=== PATIENT | female | born 1950 | race Caucasian/White ===

== ENCOUNTER → 2016-10-16 | Outpatient (CLI) | payer MEDICARE ==
[2016-10-16 09:00] LABS: HEMOGLOBIN 14.6 gm/dl (12.3-15.3); RED BLOOD COUNT 4.32 M/UL (4.00-5.10); WHITE BLOOD COUNT 7.1 K/UL (4.5-11.0)
[2016-10-16 09:22] LABS: BUN/CREATININE RATIO 15 (0-10)
== END ==
LOC: LAB 08:33
PROVIDERS: Family Medicine
DX: E55.9 Vitamin D deficiency, unspecified (principal); E78.5 Hyperlipidemia, unspecified
CPT/HCPCS: 36415; 80053; 80061; 85025

== ENCOUNTER → 2016-12-21 | Outpatient (CLI) | payer MEDICARE ==
[2016-12-21 11:55] LABS: HEMOGLOBIN 13.8 gm/dl (12.3-15.3); RED BLOOD COUNT 4.01 M/UL (4.00-5.10); WHITE BLOOD COUNT 6.6 K/UL (4.5-11.0)
== END ==
LOC: LAB 11:11
PROVIDERS: Family Medicine
DX: D75.89 Other specified diseases of blood and blood-forming organs (principal); R53.83 Other fatigue; F32.9 Major depressive disorder, single episode, unspecified; I10 Essential (primary) hypertension
CPT/HCPCS: 36415; 84443; 85025

== ENCOUNTER → 2020-08-31 | Outpatient (CLI) | payer MEDICARE, OTHER ==
[~2020-08-31] VITALS: Ht 157.5 cm; Wt 54.0 kg
[~2020-08-31] MED LIST: ALDACTONE25 MG PO; ANORO ELLIPTA1 EACH INH; ASPIR 8181 MG PO; ASPIRIN CHEWABL81 MG PO; ATORVASTATIN CA80 MG PO; BUSPAR 10MG10 MG PO; BUSPIRONE HCL15 MG PO; COLACE 100MG C100 MG PO; COREG 3.125M3.125 MG PO; CRESTOR40 MG PO; CYMBALTA60 MG PO; DOCUSATE SODIU100 MG PO; ECOTRIN81 MG PO; FUROSEMIDE40 MG PO; GAVILAX17 GM PO; ISORDIL TAB 2020 MG PO; K-TAB ER20 MEQ PO; LASIX40 MG PO; LIPITOR TAB 2020 MG PO; LIPITOR40 MG PO; LISINOPRIL2.5 MG PO; LISINOPRIL5 MG PO; METHOCARBAMOL500 MG PO; MIDODRINE HCL2.5 MG PO; MIRALAX17 GM PO; NEURONTIN 400400 MG PO; NEURONTIN600 MG PO; NITROSTAT0.4 MG SL; ONDANSETRON HCL8 MG PO; PANTOPRAZOLE SO40 MG PO; PLAVIX 75 MG TA75 MG PO; POTASSIUM CHLO20 ME1 PO; POTASSIUM CHLO20 ME2 PO; PRINIVIL5 MG PO; PROLIA INJ60 MG/1 ML SC; PROTONIX40 MG PO; RANEXA1000 MG PO; RANEXA500 MG PO; RANITIDINE HCL150 MG PO; REGLAN10 MG PO; SPIRIVA HANDIH18 MCG INH; SPIRIVA18 MCG INH; TIZANIDINE HCL2 MG PO; ULTRAM50 MG PO; VENTOLIN HFA 66.7 GM INH; VIT B12 PO; VIT D3 PO; VITAMIN B-121000 MCG PO; VITAMIN B-122500 MCG SL; VITAMIN D32000 UNI1 PO; VITAMIN D32000 UNIT PO; ZANAFLEX4 MG PO; ZANTAC 150 MG150 MG PO; ZANTAC150 MG PO; ZOFRAN ODT8 MG PO; ZOFRAN4 MG PO; ZYRTEC10 MG PO
== END ==
LOC: OPSV 08-25 12:00
DX: M81.0 Age-related osteoporosis without current pathological fracture (principal); Z12.31 Encounter for screening mammogram for malignant neoplasm of breast; Z78.0 Asymptomatic menopausal state
CPT/HCPCS: 77063; 77067; 96372

== ENCOUNTER → 2020-11-08 | Outpatient (CLI) | payer MEDICARE, OTHER ==
[2020-11-09 11:15] LABS: CREATININE, URINE 46.6 mg/dL (Not Estab.)
== END ==
LOC: LAB 12:03
PROVIDERS: Family Medicine
DX: E78.5 Hyperlipidemia, unspecified (principal); I12.9 Hypertensive chronic kidney disease with stage 1 through stage 4 chronic kidney disease, or unspecified chronic kidney disease; N18.30 Chronic kidney disease, stage 3 unspecified; E55.9 Vitamin D deficiency, unspecified; E53.8 Deficiency of other specified B group vitamins
CPT/HCPCS: 36415; 80053; 80061; 82043; 82570; 82607

== ENCOUNTER → 2020-11-09 | Outpatient (CLI) | payer MEDICARE, OTHER | LOC: EXRD 09:12 | DX: Z13.6 Encounter for screening for cardiovascular disorders (principal); M81.0 Age-related osteoporosis without current pathological fracture | CPT/HCPCS: 76706; 77080 ==

== ENCOUNTER → 2020-11-11 | Outpatient (CLI) | payer MEDICARE, OTHER | LOC: RAD 12:42 | DX: I50.22 Chronic systolic (congestive) heart failure (principal) | CPT/HCPCS: 71046 ==

== ENCOUNTER → 2020-11-18 | Outpatient (CLI) | payer MEDICARE, OTHER | LOC: LAB 08:44 | PROVIDERS: Family Medicine | DX: I50.22 Chronic systolic (congestive) heart failure (principal) | CPT/HCPCS: 36415; 80048; 83880 ==

== ENCOUNTER → 2021-01-11 | Outpatient (CLI) | payer MEDICARE, OTHER | LOC: HEART 5 08:34 | DX: I20.8 Other forms of angina pectoris (principal); I21.9 Acute myocardial infarction, unspecified | CPT/HCPCS: 78452; A9502; J0280; J2785 ==

== ENCOUNTER → 2021-01-17 | Outpatient (CLI) | payer MEDICARE, OTHER | LOC: LAB 11:48 | PROVIDERS: Family Medicine | DX: I50.22 Chronic systolic (congestive) heart failure (principal); N18.30 Chronic kidney disease, stage 3 unspecified | CPT/HCPCS: 36415; 80048; 83735 ==

== ENCOUNTER → 2021-01-20 | Outpatient (CLI) | payer MEDICARE, OTHER | LOC: ECHO 13:00 | DX: I20.8 Other forms of angina pectoris (principal) | CPT/HCPCS: ECHO; 93306 ==

== ENCOUNTER → 2021-02-04 | Outpatient (CLI) | payer MEDICARE ==
[2021-02-04 10:27] LABS: HEMOGLOBIN 13.2 gm/dl (12.3-15.3); RED BLOOD COUNT 3.83 M/UL (4.00-5.10); WHITE BLOOD COUNT 10.3 K/UL (4.5-11.0)
== END ==
LOC: LAB 08:51
PROVIDERS: Internal Medicine Cardiovascular Disease
DX: I25.119 Atherosclerotic heart disease of native coronary artery with unspecified angina pectoris (principal); I11.0 Hypertensive heart disease with heart failure; I50.22 Chronic systolic (congestive) heart failure; R06.02 Shortness of breath; R53.1 Weakness
CPT/HCPCS: 36415; 71046; 80048; 85025

== ENCOUNTER 2021-02-08 08:13 | Outpatient (CLI) | payer MEDICARE ==
[~2021-02-08] VITALS: Ht 157.5 cm; Wt 57.6 kg
[~2021-02-08 08:13] MED LIST changes: -ALDACTONE25 MG PO; -ANORO ELLIPTA1 EACH INH; -CRESTOR40 MG PO; -DOCUSATE SODIU100 MG PO; -LISINOPRIL2.5 MG PO; -METHOCARBAMOL500 MG PO; -MIDODRINE HCL2.5 MG PO; -PROLIA INJ60 MG/1 ML SC; -ZYRTEC10 MG PO
[2021-02-08] MEDS ORDERED: LISINOPRIL2.5 MG PO (09:37)
[2021-02-08] MEDS ORDERED: ANORO ELLIPTA1 EACH INH (10:02)
[2021-02-08] MEDS ORDERED: MIDODRINE HCL2.5 MG PO (10:04)
[2021-02-08] MEDS ORDERED: METHOCARBAMOL500 MG PO (10:04)
[2021-02-08] MEDS ORDERED: ALDACTONE25 MG PO (10:05)
[2021-02-08] MEDS ORDERED: PROLIA INJ60 MG/1 ML SC (10:05)
[2021-02-08] MEDS ORDERED: CRESTOR40 MG PO (10:05)
[2021-02-08] MEDS ORDERED: ZYRTEC10 MG PO (10:06)
[2021-02-08 19:49] LABS: HEMOGLOBIN 12.7 gm/dl (12.3-15.3); RED BLOOD COUNT 3.6 M/UL (4.00-5.10); WHITE BLOOD COUNT 10.1 K/UL (4.5-11.0)
[2021-02-09 02:43] LABS: HEMOGLOBIN 13.3 gm/dl (12.3-15.3); RED BLOOD COUNT 3.92 M/UL (4.00-5.10)
[2021-02-09] MEDS ORDERED: DOCUSATE SODIU100 MG PO (10:51)
== END 2021-02-09 11:36 | disposition home or self-care (01) ==
LOC: CATH 08:13 → PROG CARE 15:03 → CATH 02-09 11:36
PROVIDERS: Internal Medicine Cardiovascular Disease
DX: I25.118 Atherosclerotic heart disease of native coronary artery with other forms of angina pectoris (principal); I11.0 Hypertensive heart disease with heart failure; I50.9 Heart failure, unspecified; E78.5 Hyperlipidemia, unspecified; I25.2 Old myocardial infarction; I73.9 Peripheral vascular disease, unspecified; J44.9 Chronic obstructive pulmonary disease, unspecified; K21.9 Gastro-esophageal reflux disease without esophagitis; Z95.5 Presence of coronary angioplasty implant and graft; Z88.5 Allergy status to narcotic agent; Z88.8 Allergy status to other drugs, medicaments and biological substances; Z79.82 Long term (current) use of aspirin; Z79.02 Long term (current) use of antithrombotics/antiplatelets; Z79.899 Other long term (current) drug therapy
CPT/HCPCS: 36415; 80048; 85027; 85347; 93005; 94640; 94664; 94760; 99152; 99153; C1725; C1769; C1874; C1887; C9600; J0461; J1170; J1644; J2250; J2370; J2405; J3246; J7030; J7040; Q9965

== ENCOUNTER → 2021-02-16 | Outpatient (CLI) | payer MEDICARE ==
[~2021-02-16] MED LIST changes: +ALDACTONE25 MG PO; +ANORO ELLIPTA1 EACH INH; +CRESTOR40 MG PO; +DOCUSATE SODIU100 MG PO; +LISINOPRIL2.5 MG PO; +METHOCARBAMOL500 MG PO; +MIDODRINE HCL2.5 MG PO; +PROLIA INJ60 MG/1 ML SC; +ZYRTEC10 MG PO
== END ==
LOC: LAB 09:04
PROVIDERS: Family Medicine
DX: E53.8 Deficiency of other specified B group vitamins (principal); E55.9 Vitamin D deficiency, unspecified; E83.42 Hypomagnesemia; I12.9 Hypertensive chronic kidney disease with stage 1 through stage 4 chronic kidney disease, or unspecified chronic kidney disease; N18.30 Chronic kidney disease, stage 3 unspecified; E78.5 Hyperlipidemia, unspecified
CPT/HCPCS: 36415; 80053; 82570; 82607; 83735; 84156

== ENCOUNTER → 2021-02-28 | Outpatient (CLI) | payer MEDICARE ==
[~2021-02-28] VITALS: Ht 157.5 cm; Wt 59.0 kg
== END ==
LOC: OPSV 12:00
DX: M81.0 Age-related osteoporosis without current pathological fracture (principal)
CPT/HCPCS: 96372

== ENCOUNTER → 2021-03-09 | Outpatient (CLI) | payer MEDICARE | LOC: LAB 12:15 | PROVIDERS: Internal Medicine Nephrology | DX: I25.10 Atherosclerotic heart disease of native coronary artery without angina pectoris (principal) | CPT/HCPCS: 36415; 80048 ==

== ENCOUNTER → 2021-04-01 | Outpatient (CLI) | payer MEDICARE ==
[2021-04-02 07:12] LABS: VITAMIN D, 25-HYDROXY 47.6 ng/mL (30.0-100.0)
[2021-04-05 01:07] LABS: TANDEM-R OSTASE 5.4 ug/L (.)
== END ==
LOC: LAB 08:14
PROVIDERS: Internal Medicine
DX: M81.0 Age-related osteoporosis without current pathological fracture (principal); D64.9 Anemia, unspecified
CPT/HCPCS: 36415; 82728; 83735; 83937; 83970; 84080; 84100

== ENCOUNTER → 2021-04-20 | Outpatient (CLI) | payer MEDICARE | LOC: EXRD 10:59 | DX: N17.9 Acute kidney failure, unspecified (principal); N28.1 Cyst of kidney, acquired | CPT/HCPCS: 76775 ==

== ENCOUNTER → 2021-04-21 | Outpatient (CLI) | payer MEDICARE ==
[2021-04-21 10:27] LABS: HEMOGLOBIN 14.3 gm/dl (12.3-15.3); RED BLOOD COUNT 3.96 M/UL (4.00-5.10); WHITE BLOOD COUNT 7.2 K/UL (4.5-11.0)
== END ==
LOC: LAB 08:22
PROVIDERS: Internal Medicine Nephrology
DX: N17.9 Acute kidney failure, unspecified (principal); I95.9 Hypotension, unspecified; E78.5 Hyperlipidemia, unspecified; E55.9 Vitamin D deficiency, unspecified
CPT/HCPCS: 36415; 80053; 82533; 82550; 82570; 83970; 84100; 84156; 85027; 89050

== ENCOUNTER 2021-05-18 11:05 | Emergency (ER) | payer MEDICARE ==
[2021-05-18 12:26] LABS: HEMOGLOBIN 15.3 gm/dl (12.3-15.3); RED BLOOD COUNT 4.31 M/UL (4.00-5.10); WHITE BLOOD COUNT 7.9 K/UL (4.5-11.0)
[2021-05-18] MEDS ORDERED: ONDANSETRON ODT4 MG SL (15:25)
[2021-05-18] MEDS ORDERED: AUGMENTIN 875-1 EACH PO (15:25)
[2021-05-18] MEDS ORDERED: METRONIDAZOLE500 MG PO (15:25)
== END 2021-05-18 15:35 | disposition home or self-care (01) ==
LOC: ER1 11:05
PROVIDERS: Physician Assistant
DX: K52.9 Noninfective gastroenteritis and colitis, unspecified (principal); N39.0 Urinary tract infection, site not specified; R07.89 Other chest pain; I25.2 Old myocardial infarction; K21.9 Gastro-esophageal reflux disease without esophagitis; J44.9 Chronic obstructive pulmonary disease, unspecified; Z88.8 Allergy status to other drugs, medicaments and biological substances; Z90.89 Acquired absence of other organs
CPT/HCPCS: 80053; 81001; 82550; 82553; 83690; 83874; 84484; 85025; 87077; 87086; 87186; 93005; 96374; 99284; J2550; J7030

== ENCOUNTER → 2021-06-21 | Outpatient (CLI) | payer MEDICARE ==
[~2021-06-21] MED LIST changes: +AUGMENTIN 875-1 EACH PO; +METRONIDAZOLE500 MG PO; +ONDANSETRON ODT4 MG SL
== END ==
LOC: LAB 08:03
PROVIDERS: Physician Assistant
DX: I25.10 Atherosclerotic heart disease of native coronary artery without angina pectoris (principal); I11.0 Hypertensive heart disease with heart failure; I50.22 Chronic systolic (congestive) heart failure; I48.91 Unspecified atrial fibrillation; I47.2 Ventricular tachycardia; I25.5 Ischemic cardiomyopathy; E78.5 Hyperlipidemia, unspecified; R00.2 Palpitations
CPT/HCPCS: 36415; 80048; 80162

== ENCOUNTER → 2021-07-08 | Outpatient (CLI) | payer MEDICARE ==
[2021-07-08 12:39] LABS: HEMOGLOBIN 15.5 gm/dl (12.3-15.3); RED BLOOD COUNT 4.45 M/UL (4.00-5.10); WHITE BLOOD COUNT 9.4 K/UL (4.5-11.0)
== END ==
LOC: LAB 11:33
PROVIDERS: Internal Medicine Cardiovascular Disease
DX: Z45.02 Encounter for adjustment and management of automatic implantable cardiac defibrillator (principal); I25.5 Ischemic cardiomyopathy; I47.2 Ventricular tachycardia
CPT/HCPCS: 36415; 80048; 85025

== ENCOUNTER → 2021-07-12 | Outpatient (CLI) | payer MEDICARE ==
[~2021-07-12] MED LIST changes: +CLINDAMYCIN HC300 MG PO; +ELIQUIS5 MG PO; +HYDROCODON-ACE1 EAC4 PO; +LANOXIN125 MCG PO; +LEVOFLOXACIN500 MG PO; +PAIN RELIEF500 M1 PO
== END ==
LOC: CATH 07:00
DX: Z45.02 Encounter for adjustment and management of automatic implantable cardiac defibrillator (principal); I25.5 Ischemic cardiomyopathy; I50.22 Chronic systolic (congestive) heart failure; I25.10 Atherosclerotic heart disease of native coronary artery without angina pectoris; I44.7 Left bundle-branch block, unspecified; I48.91 Unspecified atrial fibrillation; Z20.822 Contact with and (suspected) exposure to COVID-19; Z95.810 Presence of automatic (implantable) cardiac defibrillator; Z87.891 Personal history of nicotine dependence
CPT/HCPCS: C1882; J2250; J3010; J3370; J7040; J7050

== ENCOUNTER → 2021-08-31 | Outpatient (CLI) | payer MEDICARE ==
[~2021-08-31] VITALS: Ht 157.5 cm; Wt 59.0 kg
[2021-09-01 07:12] LABS: COMPLEMENT C3, SERUM 126 mg/dL (82-167); COMPLEMENT C4, SERUM 27 mg/dL (12-38)
[2021-09-01 14:15] LABS: ANTI-DSDNA ANTIBODIES <1 IU/mL (0-9)
[2021-09-02 12:15] LABS: ANTIHISTONE ANTIBODIES 0.3 Units (0.0-0.9)
== END ==
LOC: OPSV 11:54
PROVIDERS: Internal Medicine Nephrology
DX: M81.0 Age-related osteoporosis without current pathological fracture (principal); R76.8 Other specified abnormal immunological findings in serum; N17.9 Acute kidney failure, unspecified
CPT/HCPCS: 80053; 85652; 86038; 86160; 86162; 86225; 96372

== ENCOUNTER → 2021-10-27 | Outpatient (CLI) | payer MEDICARE ==
[2021-10-27 10:35] LABS: HEMOGLOBIN 13.9 gm/dl (12.3-15.3); RED BLOOD COUNT 3.98 M/UL (4.00-5.10); WHITE BLOOD COUNT 10.4 K/UL (4.5-11.0)
== END ==
LOC: MAMO 10:08
PROVIDERS: Family Medicine
DX: Z12.31 Encounter for screening mammogram for malignant neoplasm of breast (principal); E53.9 Vitamin B deficiency, unspecified; E55.9 Vitamin D deficiency, unspecified; E83.42 Hypomagnesemia; E78.5 Hyperlipidemia, unspecified
CPT/HCPCS: 36415; 77063; 77067; 80053; 80061; 82607; 83735; 85027

== ENCOUNTER → 2021-11-08 | Day surgery (SDC) | payer MEDICARE ==
[~2021-11-08] MED LIST changes: +ALBUTEROL2.5 MG/3 M INH; +PLAVIX75 MG PO; +VITAMIN B-12500 MCG PO; +ZESTRIL2.5 MG PO; +ZOFRAN 4 MG TAB4 MG PO; -ZOFRAN4 MG PO
== END | disposition home or self-care (01) ==
LOC: OR 06:37
DX: Z12.11 Encounter for screening for malignant neoplasm of colon (principal); D12.0 Benign neoplasm of cecum; D12.5 Benign neoplasm of sigmoid colon; D12.3 Benign neoplasm of transverse colon; K57.30 Diverticulosis of large intestine without perforation or abscess without bleeding; K64.1 Second degree hemorrhoids; K64.4 Residual hemorrhoidal skin tags; Z86.010 Personal history of colon polyps; I25.10 Atherosclerotic heart disease of native coronary artery without angina pectoris; I11.0 Hypertensive heart disease with heart failure; I50.9 Heart failure, unspecified; E78.5 Hyperlipidemia, unspecified; I48.91 Unspecified atrial fibrillation; J44.9 Chronic obstructive pulmonary disease, unspecified; K21.9 Gastro-esophageal reflux disease without esophagitis; E03.9 Hypothyroidism, unspecified; F17.200 Nicotine dependence, unspecified, uncomplicated; Z90.49 Acquired absence of other specified parts of digestive tract; Z95.1 Presence of aortocoronary bypass graft; Z88.5 Allergy status to narcotic agent; Z88.6 Allergy status to analgesic agent; Z88.8 Allergy status to other drugs, medicaments and biological substances; Z79.01 Long term (current) use of anticoagulants; Z79.82 Long term (current) use of aspirin; Z79.891 Long term (current) use of opiate analgesic; Z79.899 Other long term (current) drug therapy
CPT/HCPCS: J2704; J7040

== ENCOUNTER → 2021-11-14 | Outpatient (CLI) | payer MEDICARE | LOC: LAB 13:24 | PROVIDERS: Family Medicine | DX: N18.30 Chronic kidney disease, stage 3 unspecified (principal) | CPT/HCPCS: 36415; 80048 ==

== ENCOUNTER → 2022-01-04 | Outpatient (CLI) | payer MEDICARE, OTHER | LOC: US 13:14 | PROVIDERS: Internal Medicine Nephrology | DX: R80.9 Proteinuria, unspecified (principal); N28.1 Cyst of kidney, acquired | CPT/HCPCS: 36415; 80053; 82570; 84156 ==

== ENCOUNTER → 2022-03-01 | Outpatient (CLI) | payer MEDICARE ==
[2022-03-01 12:23] LABS: RED BLOOD COUNT 3.98 M/UL (4.00-5.10); WHITE BLOOD COUNT 10.9 K/UL (4.5-11.0)
== END ==
LOC: LAB 11:44
PROVIDERS: Family Medicine
DX: E55.9 Vitamin D deficiency, unspecified (principal); E53.8 Deficiency of other specified B group vitamins; E78.5 Hyperlipidemia, unspecified; I10 Essential (primary) hypertension
CPT/HCPCS: 36415; 80053; 80061; 82607; 83735; 85027